=== PATIENT | female | born 1940 | race Caucasian/White ===

== ENCOUNTER 2016-08-29 12:45 | Inpatient (IN) | payer MEDICARE, OTHER ==
[2016-08-29 13:34] LABS: URINE APPEARANCE HAZY; URINE BILIRUBIN NEGATIVE (NEGATIVE); URINE BLOOD NEGATIVE (NEGATIVE); URINE COLOR YELLOW; URINE GLUCOSE (UA) NEGATIVE (NEGATIVE); URINE LEUKOCYTE ESTERASE 1+ (NEGATIVE); URINE NITRITE NEGATIVE (NEGATIVE); URINE PROTEIN NEGATIVE (NEGATIVE); URINE UROBILINOGEN NORMAL (0-1 mg/dl)
[2016-08-29 13:37] LABS: ALB/GLOB RATIO 1.2 (>1.0); ALBUMIN 3.6 gm/dL (3.5-5.7)
[2016-08-29 13:40] LABS: ABSOLUTE NEUTROPHIL COUNT 4.8 K/mm3 (1.8-7.7); BASO # 0.1 K/mm3 (0.0-0.2); BASO % 0.8 % (0.2-1.0); EOS # 0.1 (0.0-0.5); EOS % 0.9 % (0.9-2.9); HEMATOCRIT 51.6 % (37.0-47.0); IMM NEUT% 0.4 % (0-1); LYMPH # 1.5 (1.0-4.8); LYMPH % 19.5 % (15-45); MEAN CELL VOLUME 91.5 fl (81.0-99.0); MEAN CORPUSCULAR HEMOGLOBIN 30.1 pg (27.0-31.0); MEAN CORPUSCULAR HGB CONC 32.9 g/dl (33.0-37.0); MEAN PLATELET VOLUME 10.5 fl (7.4-10.4); MONO % 13.8 % (4-12); NEUT % 64.6 % (43-75); PLATELET COUNT 249 K/mm3 (130-400); RED CELL DISTRIBUTION WIDTH 13.5 % (11.5-14.5)
[2016-08-29 13:40] LABS: URINE BACTERIA FEW; URINE RBC 0-1 /hpf
[2016-08-29 13:53] LABS: CALCIUM 14.2 mg/dL (8.6-10.3)
[2016-08-29] MEDS ORDERED: SODIUM CHLORIDE 0.9% 1,000 ML ONE (14:01)
[2016-08-29] MEDS ORDERED: ONDANSETRON 4 MG/2ML 2 ML VIAL ONE (14:01)
[2016-08-29] MEDS ORDERED: IOPAMIDOL 300 (61%) 100 ML VIAL IV ONE (14:55)
[2016-08-29 15:49] VITALS: BMI 27.0
[2016-08-29] MEDS ORDERED: MAGNESIUM HYDROXIDE 30 ML UDCUP PO PRN (16:54)
[2016-08-29] MEDS ORDERED: BISACODYL 5 MG TABLET.EC PO PRN (16:54)
[2016-08-29] MEDS ORDERED: SODIUM CHLORIDE 0.9% 100 ML IV PRN (16:54)
[2016-08-29] MEDS ORDERED: BLISTEX LIPSTICK 1 EACH TP PRN (16:54)
[2016-08-29] MEDS ORDERED: BISACODYL 10 MG SUP PR PRN (16:54)
[2016-08-29] MEDS ORDERED: MENTHOL/CETYLPYRD 1 EACH LOZENGE PO PRN (16:54)
[2016-08-29] MEDS ORDERED: SODIUM CHLORIDE 0.9% 1,000 ML IV SCH (17:00)
[2016-08-29] MEDS ORDERED: PUMP TUBING ONE (17:10)
[2016-08-29] MEDS: ENOXAPARIN SODIUM 40 MG/0.4 ML SYRINGE SUB-Q SCH (17:14)
--- NOTE | 2016-08-29 18:25 | CT ---
Exam Type: ABD/PELVIS W/ CON Date and Time: 08/29/2016 4:53 PM Clinical information: History of breast cancer. Megaly. Hypercalcemia. Comparison: 03/05/2012 CT abdomen and pelvis. Technique: Contiguous axial 4 mm images were obtained from the lung bases through the pelvis after the uneventful IV administration of 100 cc of Isovue-300. Sagittal and coronal reformations with high resolution lung algorithm images were also obtained at this time. CT DI: 15.9 DLP 771.8 FINDINGS: Lung base : Dependent and atelectatic changes are present. Visualized heart:There is no pericardial effusion. LIVER: Diffuse fatty infiltration is noted. Multiple hypodense lesions are scattered throughout the liver, predominantly within the right lobe. These appear to have some thicker possibly enhancing rim of tissue. For example on image 36 within the medial segment left lobe there is a 3.0 x 3.2 cm region of central hypodensity with slight peripheral increased density/enhancement. There is nodular contour to the liver. No evidence of recanalization of the umbilical vein or gastroesophageal varices. Liver is enlarged measuring 24.1 cm in craniocaudal extent on image 27 of the coronal series. BILE DUCTS: normal caliber. GALLBLADDER: No calcified gallstones. Normal caliber wall. PANCREAS: within normal limits. SPLEEN: within normal limits. ADRENALS: within normal limits. KIDNEYS: within normal limits. Stomach and small BOWEL: Normal caliber. Large bowel: Air and stool are noted within the large bowel. Diverticulosis without diverticulitis or abscess formation. Appendix is not visualized though secondary signs of appendicitis are not seen. LYMPH NODES: External iliac node on image 83 measures 1.7 x 1.1 cm. On the same image there is a prominent node measuring 1.8 x 0.8 cm. External iliac node on image 76 measures 1.5 x 1.3 cm on the right. PERITONEUM: no ascites or free air, no fluid collection. VESSELS: Moderate atherosclerotic disease of the abdominal aorta and branch vessels. RETROPERITONEUM: within normal limits. ABDOMINAL WALL: Air is noted within the subcutaneous fat likely relating to injection along the left midabdomen. Significant atrophy of the gluteus medius and minimus tendons are present on the right likely on the basis of the patient's prior bilateral total hip arthroplasty. Bladder: Limited assessment secondary to the arthroplasty changes. Uterus and adnexa: Uterus is surgically absent. Adnexa are thought to be present and unremarkable. BONES: Multilevel degenerative changes of the spine. No lytic or sclerotic lesions. IMPRESSION: Hepatomegaly with multiple slightly hyperdense/enhancing lesions demonstrating central hypodensity. Findings represent metastatic breast cancer until proven otherwise. Adenopathy is also noted within the external iliac chain bilaterally, also worrisome for metastatic disease. No other areas of metastasis are present. Senescent and other incidental findings as above. Findings were called to Dr. Russell at approximately 1821 hours on 08/29/2016.
--- NOTE | 2016-08-29 18:58 | HP ---
BÁRBARA JOHNSON DATE OF ADMISSION: August 29, 2016 CHIEF COMPLAINT: Weakness. HISTORY OF PRESENT ILLNESS: Bárbara is a 76-year-old female with known underlying breast cancer. She has undergone left mastectomy and has gone through several months of chemotherapy with Dr. Hutson. In the last two months she has been transitioned over to Herceptin suppression therapy. She gets this once a month. Today she was due for her monthly Herceptin therapy. She presented to Dr. Hutson's office. She was noted to be profoundly weak. Further history is that she had been feeling weak with nausea for the last nine days prior to this. She has occasional nausea, weakness, dry mouth and in the last day or so she has had some confusion as well. Given these symptoms, Dr. Hutson sent her to the emergency room for evaluation. In the emergency room she was worked up and found to have hypercalcemia with a calcium level of 14.2. She was subsequently admitted to the hospitalist service for further workup and treatment. REVIEW OF SYSTEMS: No headache, no visual changes, no difficulty swallowing. She does have a dry mouth, weakness, maybe some confusion today but this seems to be resolved. No chest pain, no shortness of breath, no heart palpitations. She does have a sense some abdominal/flank pain. She has had it for several months, and it seems to have actually gotten better in the last couple of months though she still feels like something is not quite right in her abdomen. No new extremity weakness, numbness, tingling or swelling. No skin changes. Review of system is otherwise negative. PAST MEDICAL HISTORY: 1. Breast cancer. This was originally diagnosed about ten years ago. She had a lumpectomy and chemotherapy back then. She had a recurrence of what sounds like a different type of tumor in 2016. She underwent a bilateral mastectomy for a left-sided breast cancer. She has been followed by Dr. Hutson and has undergone a full round of chemotherapy (details unavailable), and within the last couple of months she has transitioned to Herceptin suppression therapy monthly. 2. Hypothyroidism. 3. Hypertension. 4. Hyperlipidemia. 5. Gastroesophageal reflux disease with a stricture back in 2011. PAST SURGICAL HISTORY: 1. Bilateral mastectomy, February 09, 2016, as noted above. 2. Port placement right subclavian area, March,, as noted above. 3. Esophagogastroduodenoscopy with dilation in 2011. 4. Bilateral total knee arthroplasties back in 2006. ALLERGIES: NO KNOWN DRUG ALLERGIES. CURRENT MEDICATIONS: 1. Hydrochlorothiazide 25 mg orally daily. 2. Metoprolol XL 25 mg orally daily. 3. Levothyroxine 50 mcg orally in the morning. 4. [place] 5/325 one to two every four hours as needed. 5. Omeprazole 20 mg orally twice daily. 6. Compazine 10 mg orally every six hours as needed for nausea. SOCIAL HISTORY: She lives with her daughter in [place]. She has two other sons and a daughter all of whom live in [place]. She has been for the last two years after her of a heart attack. No alcohol, tobacco or drug use. 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 FAMILY HISTORY: Multiple family members with cancer especially on her mother's side. PHYSICAL EXAMINATION: VITAL SIGNS: Stable. She is afebrile. GENERAL: This is a well-developed, well-nourished elderly female. At the time I examine her she is alert and pleasant. She is feeling much better after receiving fluid in the emergency room, though she still does feel like she has a dry mouth. HEENT: Normocephalic, atraumatic. Tympanic membranes are clear. Oropharynx is dry, no lesions. NECK: Is supple, no jugular venous distention. LUNGS: Clear with no wheezes, rales or rhonchi. HEART: Regular rhythm. ABDOMEN: She does have organomegaly with the liver edge about 2 cm below the margin. She has some mild diffuse tenderness diffusely with no true rebound or guarding. Bowel tones are positive. EXTREMITIES: With trace edema. LABORATORIES: CBC with a white count of 7.5, hemoglobin 17.0, hematocrit 51.6, platelets of 249. Chemistry panel, sodium 134, potassium 3.5, chloride 96, carbon dioxide 28, BUN of 30, creatinine 1.0, glucose of 95. Calcium is elevated at 14.2. Total bilirubin 0.9, AST 166, ALT 78, alkaline phosphatase of 165, lipase of 27. Urinalysis is clear. ASSESSMENT AND PLAN: 1. Hypercalcemia etiology is mostly likely a result of her underlying known breast cancer. I am concerned given her elevated transaminases, physical exam with hepatomegaly and her new hypercalcemia that she may have a recurrence/metastasis of her breast cancer. We will go ahead and treat her with IV fluid rehydration tonight. In looking through her chart, her baseline calcium is actually right around 10 so she is not that much higher than normal, so I am going to hold off on diphosphonate therapy tonight. We will reevaluate her lab work in the morning after hydration overnight. Given her hepatomegaly and liver transaminases with her abdominal symptoms, I am going to get an abdominal/pelvic CT scan with contrast as well. 2. Hypothyroidism, as above. 3. Hypertension. Continue with usual medications as tolerated. 4. Gastroesophageal reflux disease. We will substitute Protonix for her usual omeprazole. 5. Deep venous thrombosis prophylaxis with Lovenox. 6. Further care as indicated by clinical course. Cc: Eloina Nair M.D. Curt Hutson M.D.
[2016-08-29] MEDS: ACETAMINOPHEN 325 MG TABLET PO PRN (20:08)
[2016-08-29] MEDS: SODIUM CHLORIDE 0.9% 1,000 ML IV SCH (20:09)
[2016-08-29] MEDS: PANTOPRAZOLE 40 MG TABLET DR PO SCH (20:11)
[2016-08-29] MEDS: DOCUSATE SODIUM 100 MG CAPSULE PO SCH (20:11)
[2016-08-30] MEDS: SODIUM CHLORIDE 0.9% 1,000 ML IV SCH ×4 (02:18→22:40)
[2016-08-30] MEDS: ACETAMINOPHEN 325 MG TABLET PO PRN (02:27)
[2016-08-30 06:00] LABS: HEMATOCRIT 47.8 % (37.0-47.0); HEMOGLOBIN 15.7 gm/l (12.0-16.0); MEAN CORPUSCULAR HEMOGLOBIN 30.5 pg (27.0-31.0); MEAN CORPUSCULAR HGB CONC 32.8 g/dl (33.0-37.0); RED CELL DISTRIBUTION WIDTH 13.5 % (11.5-14.5)
[2016-08-30 06:25] LABS: ALB/GLOB RATIO 1.3 (>1.0)
[2016-08-30] MEDS: DOCUSATE SODIUM 100 MG CAPSULE PO SCH ×2 (10:16→21:01)
[2016-08-30] MEDS: PANTOPRAZOLE 40 MG TABLET DR PO SCH ×2 (10:16→21:01)
[2016-08-30] MEDS ORDERED: FUROSEMIDE 20 MG/2 ML VIAL IV ONE (10:19)
--- NOTE | 2016-08-30 10:20 | PDOC43 ---
- Subjective Chief Complaint: Hypercalcemia Feeling sl better this AM, but still more weak than nl. Subjective: Denies Shortness of Breath, Denies Cough, Denies Chest Pain, Denies Abdominal Pain, Denies Nausea, Denies Vomiting, Denies Fever, Denies Chills - Objective Vital Signs Temperature 97.9 F 08/30/16 07:01 Pulse Rate 70 08/30/16 07:01 Respiratory Rate 18 08/30/16 08:00 Blood Pressure 157/90 08/30/16 07:01 O2 Saturation by Pulse Oximetry 92 08/30/16 07:01 Oxygen Delivery Method Room Air Oxygen Flow Rate 0 Intake and Output 08/29/16 08/30/16 08/31/16 06:59 06:59 06:59 Intake Total 3633 Output Total 3500 Balance 133 General: Alert, Oriented x3, Cooperative, No Acute Distress HEENT: Atraumatic Lungs: Clear to Auscultation Bilaterally Cardiovascular: Regular Rate and Rhythm Abdomen: Soft, Mild Distention Extremities: No Edema Laboratory 08/30/16 05:30 08/30/16 05:30 08/29/16 08/30/16 13:10 05:30 Calcium 14.2 H* 13.0 H* Total Bilirubin 0.9 0.8 AST 166 H 133 H ALT 78 H 62 H Alkaline Phosphatase 165 H 139 H Current Medications: Current meds reviewed in EMR. - Problems: Assessment/Plan (1) Hypercalcemia Status: AcuteAssessment/Plan: Improved sl with simple hydration but still significantly elevated. Will tx with lasix and zoledronic acid today, con't hydration. Etiology is metestatic breast CA. Anticipate d/c home in AM with close outpt f/u. (2) Breast cancer in female Qualifiers: Breast location: upper outer quadrant of breast Laterality: left Qualifier Code: (C50.412) Malignant neoplasm of upper-outer quadrant of left female breast Status: ChronicAssessment/Plan: Abd CT last night with findings c/w multiple mets to liver. Discussed with onc - may be some potential palliative tx options, but no curative options. Discussed with pt and dtr and son. Will plan on close f/u with Dr. Hutson next week to discuss options. (3) Hypertension Qualifiers: Hypertension type: essential hypertension Qualifier Code: (I10) Essential (primary) hypertension Status: ChronicAssessment/Plan: Stable. Con't usual meds. VTE Prophylaxis: Lovenox. Disposition: Anticipate d/c in AM.
[2016-08-30] MEDS ORDERED: POLYETHYLENE GLYCOL 3350 17 G POWD.SUSP PO PRN (10:27)
[2016-08-30] MEDS ORDERED: ZOLEDRONIC ACID 5 MG IV ONE (10:30)
[2016-08-30] MEDS ORDERED: POTASSIUM CHLORIDE 40 MEQ in SODIUM CHLORIDE 0.9% 500 ML IV ONE (11:30)
[2016-08-30] MEDS: ENOXAPARIN SODIUM 40 MG/0.4 ML SYRINGE SUB-Q SCH (17:10)
[2016-08-31] MEDS ORDERED: METOPROLOL SUCCINATE (XL) 50 MG TAB.PRT.SR PO ONE (00:21)
[2016-08-31] MEDS: SODIUM CHLORIDE 0.9% 1,000 ML IV SCH (05:24)
[2016-08-31 06:11] LABS: CALCIUM 11.9 mg/dL (8.6-10.3)
[2016-08-31] MEDS ORDERED: SODIUM CHLOR 0.9% w 40mEq KCL 1,000 ML IV SCH (08:45)
[2016-08-31] MEDS: DOCUSATE SODIUM 100 MG CAPSULE PO SCH (09:10)
[2016-08-31] MEDS: PANTOPRAZOLE 40 MG TABLET DR PO SCH (09:13)
[2016-08-31] MEDS ORDERED: MAGNESIUM SULFATE 2 G/50 ML 2 G in Premix (Water) 50 ml 1 EACH IV ONE (10:00)
--- NOTE | 2016-08-31 11:03 | PDOC43 ---
- Subjective Chief Complaint: Hypercalcemia Patient reports feeling a bit better. More alert, strength improved. Dry mouth noted, some concern for constipation. - Objective Vital Signs Temperature 98.1 F 08/31/16 08:12 Pulse Rate 73 08/31/16 08:12 Respiratory Rate 18 08/31/16 08:12 Blood Pressure 156/78 08/31/16 08:12 O2 Saturation by Pulse Oximetry 94 08/31/16 08:12 Oxygen Delivery Method Room Air Oxygen Flow Rate 0 Intake and Output 08/29/16 08/30/16 08/31/16 23:59 23:59 23:59 Intake Total 400 5930 2795 Output Total 1200 5510 950 Balance -955 014 9174 General: Alert HEENT: Atraumatic Lungs: Clear to Auscultation Bilaterally Cardiovascular: Regular Rate and Rhythm Abdomen: Soft, Normal Bowel Sounds Extremities: No Edema, No Tenderness Skin: Normal Color Neurological: Normal Speech Psych/Mental Status: Normal Affect Laboratory 08/30/16 05:30 08/31/16 05:30 08/31/16 05:30 Estimated GFR 97 H Calcium 11.9 H Magnesium 0.9 L Current Medications: Current meds reviewed in EMR. Active Medications Acetaminophen (Tylenol) 650 mg PO Q6H PRN PRN Reason: Pain or Temperature > 100.5 F Last Admin: 08/30/16 02:27 Dose: 650 mg Benzocaine/Menthol (Cepacol) 1 each PO PRN PRN PRN Reason: Sore Throat Bisacodyl (Dulcolax) 10 mg [place] DAILY PRN PRN Reason: Constipation Bisacodyl (Dulcolax) 5 mg PO DAILY PRN PRN Reason: Constipation Docusate Sodium (Colace) 100 mg PO BID [facility] Last Admin: 08/31/16 09:10 Dose: Not Given Enoxaparin Sodium (Lovenox) 40 mg SUB-Q Q24H [facility] Last Admin: 08/30/16 17:10 Dose: 40 mg Sodium Chloride (Sodium Chloride 0.9%) 100 mls @ 25 mls/hr IV PRN PRN PRN Reason: Flush Potassium Chloride/Sodium Chloride (Sodium Chloride 0.9% With 40meq Kcl) 1,000 mls @ 100 mls/hr IV .Q10H [facility] Last Admin: 08/31/16 09:09 Dose: 100 mls/hr Magnesium Sulfate 2 g/ Sterile (Water) 50 mls @ 25 mls/hr IV X1 ONE Stop: 08/31/16 11:59 Last Admin: 08/31/16 10:00 Dose: 25 mls/hr Magnesium Hydroxide (Milk Of Magnesia) 30 ml PO DAILY PRN PRN Reason: Constipation Last Admin: 08/30/16 21:01 Dose: 30 ml Pantoprazole Sodium (Protonix) 40 mg PO BID RYANN Last Admin: 08/31/16 09:13 Dose: 40 mg Petrolatum/Paraffin/Mineral Oil (Blistex) 1 each TP PRN PRN PRN Reason: Dry and/or chapped lips Polyethylene Glycol/Electrolytes (Miralax) 17 g PO DAILY PRN PRN Reason: Constipation Last Admin: 08/31/16 00:32 Dose: 17 g Sodium Chloride (Normal Saline 10ml Flush) 10 - 50 ml IV PRN PRN PRN Reason: IV Flush Last Admin: 08/30/16 11:17 Dose: 10 ml Sodium Chloride (Normal Saline 10ml Flush) 10 ml IV Q8HR RYANN Last Admin: 08/31/16 09:10 Dose: Not Given - Problems: Assessment/Plan (1) Hypercalcemia Status: AcuteAssessment/Plan: Etiology is suspected widely metastatic breast CA. Improved sl with simple hydration, lasix, elevated. Treated with lasix and zoledronic acid Anticipate d/c home with close outpt f/u. ( with Dr Hutson) (2) Breast cancer in female Qualifiers: Breast location: upper outer quadrant of breast Laterality: left Qualifier Code: (C50.412) Malignant neoplasm of upper-outer quadrant of left female breast Status: ChronicAssessment/Plan: Abd CT last night with findings c/w multiple mets to liver. Discussed with onc- may be some potential palliative tx options, but no curative options. Discussed with pt and dtr and son. Appt with Dr. Hutson () next week to discuss options. Reviewed with Dr Cavanaugh today ([facility]) as well. (3) Hypertension Qualifiers: Hypertension type: essential hypertension Qualifier Code: (I10) Essential (primary) hypertension Status: ChronicAssessment/Plan: Stable. Con't usual meds. VTE Prophylaxis: Lovenox. Disposition: Anticipate d/c if PT/OT think strength is acceptable.
[2016-08-31 12:09] VITALS: BP 166/98
--- NOTE | 2016-08-31 13:00 | DS ---
Bárbara Henry Will [id number] DATE OF ADMISSION: 08/29/2016 DATE OF DISCHARGE: 08/30/2016 DISCHARGE DIAGNOSES: 1. Hypercalcemia suspect related to widely metastatic breast cancer. 2. Recent diagnosis of breast cancer status post mastectomy and chemotherapy, on Herceptin treatment. 3. Hypertension. 4. Hypothyroidism. REASON FOR ADMISSION: The patient is a 76-year-old female with known underlying breast cancer who has undergone breast mastectomy, has been through chemotherapy with Dr. Hutson. She was transitioned over to Herceptin suppression therapy and at Dr. Hutson's office she was profoundly weak and had complained of weakness with nausea for the last nine days. She was also noted to have some confusion and given these symptoms Dr. Hutson's sent her to the emergency room for evaluation and a calcium was found to be 14.2. She was referred to the hospitalist service for workup and treatment. Her admission labs showed a white blood cell count of 7.5, hemoglobin 17, platelets 249. Chemistry profile, sodium 134, potassium 3.5, carbon dioxide 28, creatinine 1.0, glucose 95, calcium 14.2, AST 166, ALT 78, alk phos 165, albumin 3.6, globulin 2.9, lipase 27. Urinalysis had 1+ leukocyte esterase, 3 to 5 white cells, 0 to 1 red cells, 1 to 2 epithelial cells, few bacteria. Patient had a urine culture that was done from this which was read as negative. She also underwent a CT scan of the abdomen and pelvis, this showed a hepatomegaly with multiple slightly dense enhancing lesions demonstrating central hypodensity, findings represent metastatic breast cancer until proven otherwise. Adenopathy is also noted within the external iliac chain bilaterally, also worrisome for metastatic disease, no other areas of metastasis are present and other incidental findings as well. Patient received IV fluids with modest improvement of her calcium to 13.0. She later received Lasix as well and her calcium drop to 11.9 by 08/31/2016. At the same time she also had some degree of hypokalemia and hypomagnesemia attributed to this with her magnesium going to 0.9 and her potassium going to 3.0. She received magnesium supplementation and her hydrochlorothiazide was stopped. Her hemoglobin dropped to 15.7. By 08/31/2016 she felt she was safe to go home from physical therapy and occupational therapy and is anticipated to be discharged to home. DISCHARGE MEDICATIONS: 1. Hydrocodone acetaminophen 5/325 one to two every 4 hours as needed., 2. Levothyroxine 50 mcg by mouth daily. 3. Metoprolol succinate 25 mg by mouth daily. 4. Omeprazole 20 mg by mouth twice daily. 5. Prochlorperazine 10 mg by mouth every 6 hours as needed. 6. 7. DISCHARGE INSTRUCTION: She is also advised to use fluids, MiraLax, [id number], senna, or fiber to address possible constipation issues and to seek medical attention if having worsening strength, increasing difficulty with mental alertness or other change in status. FOLLOW UP: She has a follow up appointment with Dr. Hutson on 09/05/2016 at 11:15 a.m. The CAT scan and concern for widely metastatic disease was shared with the patient and the family by both Dr. Russell and by myself. JOB: [id number] CC: Dr. Hutson who is her canceling and cutting control clerk. Dr. Nair who is her primary care doctor.
== END 2016-08-31 14:00 | disposition home or self-care (01) | DRG 437 ==
LOC: ED 12:45 → MS 14:54 → OBSVTOIN 14:54 → UNDOADMOB 14:54 → INTOOBSV 14:54 → MS 15:42 → OBSVTOIN 16:55
PROVIDERS: ADMIT Family Medicine; ATTEND Family Medicine
DX: C78.7 Secondary malignant neoplasm of liver and intrahepatic bile duct (principal); E83.52 Hypercalcemia; C50.412 Malignant neoplasm of upper-outer quadrant of left female breast; E03.9 Hypothyroidism, unspecified; I10 Essential (primary) hypertension; E78.5 Hyperlipidemia, unspecified; K21.9 Gastro-esophageal reflux disease without esophagitis